=== PATIENT | male | born 1955 | race Caucasian/White ===

== ENCOUNTER → 2022-01-22 | Outpatient (CLI) | payer MEDICARE ==
--- NOTE | 2022-01-23 09:02 | CT ---
EXAMINATION TYPE: CT abdomen pelvis wo/w con DATE OF EXAM: 01/22/2022 COMPARISON: None. HISTORY: hematuria. CT DLP: 2674.40 mGycm, Automated Exposure Control for Dose Reduction was Utilized. CONTRAST: CT scan of the abdomen and pelvis is performed with oral and without and with IV Contrast, patient in jected with 80 mL of Isovue 300. FINDINGS: LUNG BASES: Mild left basilar linear scarring and/or atelectasis. LIVER/GB: No significant abnormality is appreciated. PANCREAS: No significant abnormality is seen. SPLEEN: No significant abnormality is seen. ADRENALS: No significant abnormality is seen. KIDNEYS: Noncontrast images show small focal cortical defect with hyperdensity upper to midpole left kidney coronal image 70 favoring prior posttreatment change or possible focal scarring with dystrophi c calcification. Correlate clinically. Postcontrast images show symmetric cortical medullary uptake and excretion without hydronephrosis see n bilaterally. There are a few adjacent small simple appearing thin-walled cyst from the lateral aspe ct upper pole left kidney, largest measures 1.5 cm image 30 series 9 being exophytic. There is more h yperdense exophytic 1.6 cm lesion laterally from the mid pole right kidney without definitive postcon trast enhancement favoring proteinaceous or hemorrhagic cysts. Occasional subcentimeter hypodense les ions throughout both kidneys is present. No intraluminal calculus or mass in the bladder. No obstruct ing ureteric calculi. BOWEL: Oral contrast does not reach colonic level making evaluation of distal bowel slightly suboptim al. No suspicious small or large bowel dilatation is seen. Normal-appearing appendix is seen from the cecum. There are diverticula scattered throughout the colon greatest involving the left and sigmoid colon. No CT evidence for acute diverticulitis. PROSTATE/SEMINAL VESICLES: Enlarged prostate consistent with BPH. LYMPH NODES: No greater than 1cm abdominal or pelvic lymph nodes are appreciated. OSSEOUS STRUCTURES: Grade 1 retrolisthesis L2 on L3 and L3 on L4. Tghpuavy-af-wkauqz disc space narro wing and spurring with endplate sclerosis anterior L2-L3 level. OTHER: There is infrarenal AAA over roughly 8.0 cm in length without iliac artery extension measuring up to 6.6 cm AP diameter axial image 44 with 5.8 cm measurement transversely having some soft tissue anterior to the rim calcification. Large umbilical hernia containing fat and tiny mesenteric vessels. IMPRESSION: 1. Source of microscopic hematuria not clearly identified. 2. Significant infrarenal AAA up to 6.6 cm. Advise fairly urgent endovascular and/or surgical referra l. A Yellow level critical message alert has been initiated for Chino Robertson MD via the [employer] Critical Results System on 01/23/2022 8:59 AM. This message alert has been sent to Lev Gleason via the preferences provided by the clinician for the receipt of Radiology Critical Findings. [address] [employer] ID [id number].
== END | disposition home or self-care (01) ==
LOC: RADCTMAIN 17:01
PROVIDERS: ATTEND Urology
DX: I71.4 Abdominal aortic aneurysm, without rupture (principal); R31.29 Other microscopic hematuria
CPT/HCPCS: 82565; 84520; 74178; 36415; Q9967

== ENCOUNTER → 2023-01-26 | Outpatient (CLI) | payer MEDICARE ==
--- NOTE | 2023-01-27 13:40 | MR ---
EXAMINATION TYPE: MR Prostate wo/w con DATE OF EXAM: 01/26/2023 9:25 AM COMPARISON: None. CLINICAL INDICATION:Male, 67 years old with history of R97.20 ELEVATED PROSTATE SPECIFIC ANTIGEN; TECHNIQUE: Multi-planar, multi-sequence imaging of the pelvis is performed prior to and following the uncomplicated administration of bolus intravenous gadolinium. CONTRAST: 11 Gadavist Interpretive Criteria: PI-RADS v2.1 SERUM PSA: 10.28 on 11/17/2022 6.5 on 05/08/2022 9.87 on 03/27/2022 SURGICAL PATHOLOGY: No data available. FINDINGS: Prostatic dimensions: 5.8 x 5.4 x 3.9 cm. Ellipsoid Volume: 63.96 (PSA density=0.16 ng/mL/mL) CENTRAL GLAND (Central and Transition Zones/CZ+TZ): Multiple bilateral, heterogenous appearing hypertrophic stromal nodules, without suspicious lesion. M edian lobe hypertrophy with protrusion into the base of the bladder. (PI-RADS 2) PERIPHERAL ZONE (PZ): Gas within the rectum limits evaluation on DWI sequences of the peripheral zone. Bilateral linear, indistinct wedgelike areas of low ADC, and low T2 signal, No evidence of masslike a bnormality, or localized perfusional hypervascularity, to further suggest a focus of clinically signi ficant prostate cancer. (PI-RADS 2) SEMINAL VESICLES (SV): Symmetric and unremarkable. PERIPROSTATIC TISSUES: Unremarkable. LYMPH NODES: Left pelvic sidewall 7 mm in short axis lymph node which is not enlarged by CT criteria. REMAINING PELVIS: Bladder wall is decompressed and felt to be normal limits given distention. No abnormal free or organized intrapelvic fluid collection. No pathologic bowel dilation or mural thickening. Bilateral fat-containing inguinal hernia. Few scattered colonic diverticula. OSSEOUS STRUCTURES: No suspicious osseous abnormality. IMPRESSION: 1. No specific features for high-risk prostate cancer. Maximum PI-RADS score: 2. 2. Moderate BPH, estimated gland volume 63.96 mL.
== END | disposition home or self-care (01) ==
LOC: RADMRIMAIN 07:46
PROVIDERS: ATTEND Urology
DX: N40.0 Benign prostatic hyperplasia without lower urinary tract symptoms (principal); R97.20 Elevated prostate specific antigen [PSA]
CPT/HCPCS: 72197; A9585

== ENCOUNTER → 2023-06-17 | Outpatient (CLI) | payer MEDICARE ==
[2023-06-17 16:52] LABS: Basophils # (A) 0.07 X 10*3/uL (0.00-0.10); Basophils % (A) 1.1 %; Eosinophils # (A) 0.05 X 10*3/uL (0.04-0.35); Eosinophils % (A) 0.8 %; HCT 44.4 % (39.6-50.0); HGB 15.7 d/dL (13.0-17.0); Lymphocytes # (A) 1.11 X 10*3/uL (0.90-5.00); Lymphocytes % (A) 17.3 %; MCH 30.7 pg (27.0-32.0); MCHC 35.4 d/dL (32.0-37.0); MCV 86.7 FL (80.0-97.0); Mean Platelet Volume 10.1 FL (9.5-12.2); Monocytes # (A) 0.51 X 10*3/uL (0.20-1.00); NRBC Per 100 WBC 0 X 10*3/uL (0.00-0.01); Neutrophils # (A) 4.63 X 10*3/uL (1.80-7.70); Neutrophils % (A) 72.3 %; Platelet Count 176 X 10*3/uL (140-440); RBC 5.12 X 10*6/uL (4.40-5.60)
[2023-06-17 17:14] LABS: Blood Urea Nitrogen 14.7 mg/dL (9.0-27.0); Calcium 9.9 mg/dL (8.7-10.3); Carbon Dioxide 24.4 mmol/L (21.6-31.8); Chloride 100 mmol/L (96-109); Glucose 105 mg/dL (70-110); Potassium 4.6 mmol/L (3.5-5.5); Sodium 136 mmol/L (135-145)
== END | disposition home or self-care (01) ==
LOC: LABPAT 11:27
PROVIDERS: ATTEND Urology
DX: Z01.812 Encounter for preprocedural laboratory examination (principal); C61 Malignant neoplasm of prostate
CPT/HCPCS: 80048; 85025

== ENCOUNTER 2023-06-24 10:31 | Day surgery (SDC) | payer MEDICARE ==
--- NOTE | 2023-06-23 22:02 | P.GSHP ---
History of Present Illness H&P Date: 06/23/23 Chief Complaint: Prostate cancer The patient is a 68-year-old white male evaluated for an elevated PSA level (8.510.20). Last month, he underwent a prostate ultrasound with biopsies. The prostate volume was 55 mL, and no echogenic abnormalities were seen. However, biopsies showed [place] 7 (3+4) adenocarcinoma at the right apex. The Polaris score is 3.7. Treatment options were reviewed, and he has chosen to be treated with IMRT rather than surgery. He will undergo SpaceOAR implant to reduce the risk of rectal toxicity. - Cardiovascular Cardiovascular: Reports high blood pressure - Genitourinary (Male) Genitourinary: Reports urinary frequency Past Medical History Past Medical History: Cancer, GERD/Reflux, Hyperlipidemia, Hypertension, Pneumo bright, Vascular Disorder Additional Past Medical History / Comment(s): Prostate cancer, abdominal aortic aneurysm with repair, post op urinary retention and constipation. History of Any Multi-Drug Resistant Organisms: None Reported Past Surgical History: Tonsillectomy Additional Past Surgical History / Comment(s): AAA repair, prostate biopsy Additional Past Anesthesia/Blood Transfusion Reaction / Comment(s): Difficulty urinating and moving bowels after surgery. Smoking Status: Former smoker - Past Family History Father Family Medical History: Myocardial Infarction (MA) Additional Family Medical History / Comment(s): MA early 60s Mother Family Medical History: Cancer Additional Family Medical History / Comment(s): of cancer/metastasized Medications and Allergies Home Medications Medication Instructions Recorded Confirmed Type Losartan Potassium 100 mg PO QAM 06/22/23 06/22/23 History Magnesium 250 mg PO QAM 06/22/23 06/22/23 History Mv-Min/Folic/K1/Lycopen/Lutein 1 tab PO QAM 06/22/23 06/22/23 History [Centrum Silver Men Tablet] Christiana-3/Dha/Epa/Fish Oil [Fish Oil 1 cap PO QAM 06/22/23 06/22/23 History 1,000 mg Softgel] Rosuvastatin Calcium 10 mg PO QAM 06/22/23 06/22/23 History Ubidecarenone [Co Q-10] 30 mg PO QAM 06/22/23 06/22/23 History dilTIAZem HCL [dilTIAZem HCL 24Hr 240 mg PO QAM 06/22/23 06/22/23 History ER (CD)] Allergies Allergy/AdvReac Type Severity Reaction Status Date / Time No Known Allergies Allergy Verified 06/22/23 09:33 Surgical - Exam - General well developed, well nourished, no distress - Respiratory normal respiratory effort - Abdomen Abdomen: soft, non tender, no guarding, no rigid, no rebound - Genitourinary normal penis with no external lesions, testicles non-tender - Rectum Rectum: normal sphincter tone, no masses, other (Prostate moderately enlarged but smooth) - Psychiatric oriented to time, oriented to person, oriented to place, speech is normal, memory intact Assessment and Plan (1) Malignant neoplasm of prostate Status: Acute Code(s): C61 - MALIGNANT NEOPLASM OF PROSTATE SNOMED Code(s): 362889187 Plan: The SpaceOar implant has been reviewed in detail with the patient. He understands that the rationale for this is to create separation between the prostate and rectum, thus reducing the risk of radiation proctitis. The material begins to breakdown 12-13 weeks following implant, and is reabsorbed by the body. Risks include anesthesia, bleeding, infection, and perineal dis comfort. He understands that if the rectal wall is perforated the procedure will need to be aborted.
[~2023-06-24 10:31] MED LIST: DEXAMETHASONE SOD PHOSPHATE 4 MG/ML 1 ML VIAL IV ONE; LACTATED RINGERS 1,000 ML IV SCH; ONDANSETRON 4 MG/2 ML VIAL IVP ONE; fentaNYL (PF) 50 MCG/ML 2 ML AMP IV PRN
[2023-06-24] MEDS ORDERED: LACTATED RINGERS 1,000 ML IV ONE (11:30)
[2023-06-24 11:31] VITALS: TEMP 97.8
[2023-06-24] MEDS ORDERED: LIDOCAINE 1% (10MG/ML) FOR IV START INTRADERMA ONE (11:31)
[2023-06-24] MEDS ORDERED: MIDAZOLAM 2 MG/2 ML VIAL ONE (13:57)
[2023-06-24] MEDS ORDERED: PROPOFOL 10 MG/ML 20 ML VIAL IV ONE (13:57)
[2023-06-24] MEDS ORDERED: fentaNYL (PF) 50 MCG/ML 2 ML AMP ONE (13:57)
[2023-06-24] MEDS ORDERED: LIDOCAINE 1% INJ 10MG/ML (20 ML MDV) SQ ONE (14:13)
--- NOTE | 2023-06-24 14:22 | P.OP ---
Date of Procedure: 06/24/23 Preoperative Diagnosis: Adenocarcinoma the prostate Postoperative Diagnosis: Same Procedure(s) Performed: SpaceOAR Implant Anesthesia: MAC Surgeon: Chino Robertson Estimated Blood Loss (ml): 5 IV fluids (ml): 200 Pathology: none sent Condition: stable Disposition: PACU Indications for Procedure: The patient is a 68-year-old white male evaluated for an elevated PSA level (8.510.20). Last month, he underwent a prostate ultrasound with biopsies. The prostate volume was 55 mL, and no echogenic abnormalities were seen. However, biopsies showed [place] 7 (3+4) adenocarcinoma at the right apex. The Polaris score is 3.7. Treatment options were reviewed, and he has chosen to be treated with IMRT rather than surgery. He will undergo SpaceOAR implant to reduce the risk of rectal toxicity. Operative Findings: 12.5 mm separation created between prostate and rectum. Description of Procedure: The patient was taken to the operating room and placed in the dorsolithotomy position, with his legs supported in Vito stirrups. The external genitalia was prepped and draped sterilely. The Bruel and Kjaer transrectal ultrasound probe was placed intrarectally. The prostate was imaged. The probe was then placed within the stabilizing stand. A spinal needle was advanced under ultrasonic guidance to the level of the urogenital diaphragm, and lidocaine was used to infiltrate the tissues as the needle was withdrawn. Next, the SpaceOAR needle was passed through the midline of the perineum, 1-2 cm anterior to the anal opening. The needle was slowly advanced under ultrasonic guidance until the needle tip was located within the fat plane between the prostate and rectum, at the level of the mid prostate gland. The needle was confirmed to be midline on the axial imaging. A small amount of normal saline was injected for hydrodissection. Next, the SpaceOAR components were mixed and loaded into the Y connector per protocol. The Y connector was then connected to the needle, and the components were injected slowly over a course of approximately 12 seconds. A total of 10 ml was injected. Significant distance was created between the prostate and rectum, as desired. It should be noted that at no point was there any concern of rectal perforation. The needle was withdrawn, as well as the transrectal ultrasound probe, and the procedure was terminated. The patient tolerated the procedure well and was taken to the recovery room in stable condition.
[2023-06-24 14:42] VITALS: RESP 18
[2023-06-24 15:03] VITALS: BP 155/88; PULSE 75
== END 2023-06-24 15:06 | disposition home or self-care (01) ==
LOC: OR 10:31
PROVIDERS: ATTEND Urology
DX: C61 Malignant neoplasm of prostate (principal); I10 Essential (primary) hypertension; E78.5 Hyperlipidemia, unspecified; K21.9 Gastro-esophageal reflux disease without esophagitis; J18.9 Pneumonia, unspecified organism; Z87.891 Personal history of nicotine dependence; Z79.899 Other long term (current) drug therapy
CPT/HCPCS: 55874; C1889; J2250; J2001; J3010; J2704

== ENCOUNTER → 2023-08-03 | Outpatient (CLI) | payer MEDICARE ==
[2023-08-03 16:42] LABS: Appearance,Urine Clear (Clear); Bilirubin,Urine Negative (Negative); Blood,Urine Small (Negative); Color,Urine Yellow (Yellow); Ketones,Urine Negative (Negative); Nitrite,Urine Negative (Negative); PH, Urine 6.5; Specific Gravity,Urine 1.015 (1.001-1.030)
[2023-08-03 16:51] LABS: Bacteria,Urine None Seen (None Seen)
== END | disposition home or self-care (01) ==
LOC: LABWHC1 09:59
PROVIDERS: ATTEND Radiology Radiation Oncology
DX: C61 Malignant neoplasm of prostate (principal)
CPT/HCPCS: 81001; 87086

== ENCOUNTER → 2023-09-14 | Outpatient (CLI) | payer MEDICARE ==
[2023-09-14 18:41] LABS: Basophils # (A) 0.06 X 10*3/uL (0.00-0.10); Eosinophils # (A) 0.07 X 10*3/uL (0.04-0.35); Eosinophils % (A) 1.2 %; HCT 47.9 % (39.6-50.0); HGB 16.1 g/dL (13.0-17.0); Lymphocytes # (A) 0.74 X 10*3/uL (0.90-5.00); Lymphocytes % (A) 12.4 %; MCH 29.4 pg (27.0-32.0); MCHC 33.6 g/dL (32.0-37.0); MCV 87.6 FL (80.0-97.0); Mean Platelet Volume 10.2 FL (9.5-12.2); Monocytes # (A) 0.43 X 10*3/uL (0.20-1.00); Monocytes % (A) 7.2 %; NRBC Per 100 WBC 0 X 10*3/uL (0.00-0.01); Neutrophils # (A) 4.66 X 10*3/uL (1.80-7.70); Platelet Count 167 X 10*3/uL (140-440); RBC 5.47 X 10*6/uL (4.40-5.60); RDW 13.1 % (11.5-14.5); WBC 5.97 X 10*3/uL (4.50-10.00)
[2023-09-14 18:47] LABS: Blood Urea Nitrogen 15.3 mg/dL (9.0-27.0); Calcium 10.2 mg/dL (8.7-10.3); Carbon Dioxide 25.1 mmol/L (21.6-31.8); Chloride 101 mmol/L (96-109); Glucose 112 mg/dL (70-110); Potassium 3.9 mmol/L (3.5-5.5); Sodium 140 mmol/L (135-145)
== END | disposition home or self-care (01) ==
LOC: LABWHC1 13:18
PROVIDERS: ATTEND Urology
DX: D69.6 Thrombocytopenia, unspecified (principal)
CPT/HCPCS: 36415; 80048; 85025

== ENCOUNTER → 2023-10-06 | Outpatient (CLI) | payer MEDICARE | END | disposition home or self-care (01) | LOC: LABWHC1 11:45 | PROVIDERS: ATTEND Radiology Radiation Oncology | DX: C61 Malignant neoplasm of prostate (principal) | CPT/HCPCS: 36415; 84153 ==